=== PATIENT | female | born 1975 | race African-American/Black ===

== ENCOUNTER 2016-11-14 09:50 | Day surgery (SDC) | payer BC ==
--- NOTE | ~2016-11-14 | EGD ---
EGD REPORT [facility] [address] [address] NAME: RYAN PAULINO : [birth year] STATUS : [place] [facility] [place] PAT#: [id number] AGE: 41 ADM/REG DATE : 11/14/16 MR#: [id number] REPORT SERV DATE: 11/14/16 DICTATED BY: LOPEZ SAUL DATE: 11/14/16 REPORT STATUS : Draft [facility] DATE: 11/14/16 [facility] Patient Name: Ryan Paulino Date of : 1975 Attending MD: LOPEZ SAUL MD Procedure Date No Time: 11/14/2016 Procedure: Colonoscopy Indications: Abdominal pain in the left lower quadrant, Follow-up of diverticulitis Referring MD: ÁNGEL Morgan MD Medicines: Propofol per Anesthesia Complications: No immediate complications. Procedure: Pre-Anesthesia Assessment: - ASA Grade Assessment: III - A patient with severe systemic disease. After I obtained informed consent, the scope was passed under direct vision. Throughout the procedure, the patient's blood pressure, pulse, and oxygen saturations were monitored continuously. The CF [id number] was introduced through the anus and advanced to the terminal ileum. The colonoscopy was performed without difficulty. The patient tolerated the procedure well. The quality of the bowel preparation was good. Findings: The perianal and digital rectal examinations were normal. The terminal ileum appeared normal. Biopsies were taken with a cold forceps for histology. The descending colon, transverse colon, ascending colon and cecum appeared normal. Biopsies were taken with a cold forceps from the right colon for evaluation of microscopic colitis. Biopsies were taken with a cold forceps from the left colon for evaluation of microscopic colitis. Diffuse mild inflammation characterized by altered vascularity, congestion (edema), erosions and erythema was found in the rectum, in the recto-sigmoid colon and in the sigmoid colon. Biopsies were taken with a cold forceps for histology. Multiple small and large-mouthed diverticula were found in the recto-sigmoid colon, in the sigmoid colon and in the descending colon. Non-bleeding internal hemorrhoids were found during retroflexion and were mild, small and Grade I (internal hemorrhoids that do not prolapse). Impression: - The examined portion of the ileum was normal. Biopsied. - The descending colon, transverse colon, ascending colon and cecum are normal. Biopsied. - Diffuse mild inflammation was found in the rectum, in EGD REPORT [address] [place]. [address] NAME: RYAN PAULINO : [birth year] STATUS : [place] [facility] [place] PAT#: [id number] AGE: 41 ADM/REG DATE : 11/14/16 MR#: [id number] REPORT SERV DATE: 11/14/16 DICTATED BY: LOPEZ SAUL DATE: 11/14/16 REPORT STATUS : Draft TRANSCRIBED BY: [employer] DATE: 11/14/16 the recto-sigmoid colon and in the sigmoid colon secondary to left-sided colitis. Biopsied. - Diverticulosis in the recto-sigmoid colon, in the sigmoid colon and in the descending colon. - Non-bleeding internal hemorrhoids. Recommendation: - Patient has a contact number available for emergencies. The signs and symptoms of potential delayed complications were discussed with the patient. Return to normal activities tomorrow. Written discharge instructions were provided to the patient. - Return to previous diet. - Continue present medications. - Await pathology results. - Repeat colonoscopy in 10 years for screening purposes. - Return to my office as previously scheduled. - Discharge patient to home. Procedure Code(s): --- Professional --- 63862, Colonoscopy, flexible, proximal to splenic flexure; with biopsy, single or multiple Diagnosis Code(s): --- Professional --- K64.0, First degree hemorrhoids K57.30, Diverticulosis of large intestine without perforation or abscess without bleeding K51.50, Left sided colitis without complications R10.32, Left lower quadrant pain K57.32, Diverticulitis of large intestine without perforation or abscess without bleeding CPT copyright 2013 [employer]. All rights reserved. The codes documented in this report are preliminary and upon certified medical coder review may be revised to meet current compliance requirements. Lopez Saul MD LOPEZ SAUL MD 11/14/2016 11:52 AM This report has been signed electronically. Number of Addenda: 0 Note Initiated On: 11/14/2016 10:40 AM Scope Withdrawal Time 0 hours 24 minutes 2 seconds EGD REPORT [facility] [address] [address] NAME: RYAN PAULINO : [birth year] STATUS : REG [facility]#: [id number] AGE: 41 ADM/REG DATE : 11/14/16 MR#: [id number] REPORT SERV DATE: 11/14/16 DICTATED BY: LOPEZ SAUL DATE: 11/14/16 REPORT STATUS : Draft TRANSCRIBED BY: [employer] DATE: 11/14/16 [address] [id number]
[~2016-11-14 09:50] MED LIST: ALD250 PO; APRISO0.375 GM PO; HYDROCHLOROT25 MG PO
== END 2016-11-14 23:59 | disposition home or self-care (01) ==
LOC: DMU 09:50
PROVIDERS: Internal Medicine Gastroenterology
PROC: 0DBP8ZX Excision of Rectum, Via Natural or Artificial Opening Endoscopic, Diagnostic (ICD-10-PCS; 2016-11-14)
PROC: 0DBN8ZX Excision of Sigmoid Colon, Via Natural or Artificial Opening Endoscopic, Diagnostic (ICD-10-PCS; 2016-11-14)
PROC: 0DBG8ZX Excision of Left Large Intestine, Via Natural or Artificial Opening Endoscopic, Diagnostic (ICD-10-PCS; 2016-11-14)
PROC: 0DBF8ZX Excision of Right Large Intestine, Via Natural or Artificial Opening Endoscopic, Diagnostic (ICD-10-PCS; 2016-11-14)
PROC: 0DBB8ZX Excision of Ileum, Via Natural or Artificial Opening Endoscopic, Diagnostic (ICD-10-PCS; principal; 2016-11-14 10:30)
DX: K51.50 Left sided colitis without complications (principal); K64.0 First degree hemorrhoids; K57.30 Diverticulosis of large intestine without perforation or abscess without bleeding; R10.32 Left lower quadrant pain; K57.32 Diverticulitis of large intestine without perforation or abscess without bleeding; I10 Essential (primary) hypertension; M19.90 Unspecified osteoarthritis, unspecified site; E11.9 Type 2 diabetes mellitus without complications; E66.9 Obesity, unspecified; Z79.899 Other long term (current) drug therapy
CPT/HCPCS: 82962; 84703; 88305